=== PATIENT | male | born 1975 | race Hispanic/Latino ===

== ENCOUNTER → 2021-10-29 | Outpatient (CLI) | payer MEDICARE | END | disposition home or self-care (01) | LOC: RAH 08:35 | PROVIDERS: ATTEND Family Medicine | DX: K76.0 Fatty (change of) liver, not elsewhere classified (principal); R18.8 Other ascites | CPT/HCPCS: 76700 ==

== ENCOUNTER 2024-01-13 08:01 | Inpatient (IN) | payer MEDICARE, OTHER ==
[~2024-01-13] VITALS: Ht 170.2 cm; Wt 123.8 kg
[2024-01-13] VITALS (23 sets, daily range): BP systolic 92–111; BP diastolic 39–76; PULSE 76–95; RESP 18–27; O2SAT 100
[2024-01-13 08:27] LABS: BASOPHILS # (AUTO) 0.13 K/uL (0.00-0.20); BASOPHILS % (AUTO) 1.2 % (0.0-5.0); EOSINOPHILS # (AUTO) 0.08 K/uL (0.00-0.70); EOSINOPHILS % (AUTO) 0.8 % (0.0-8.0); HEMATOCRIT 34.7 % (42-54); IMMATURE GRANULOCYTE ABSOLUTE 0.04 K/uL (0-1); LYMPHOCYTES # (AUTO) 2.6 K/uL (1.0-4.8); LYMPHOCYTES % (AUTO) 25.2 % (21.0-51.0); MEAN CORPUSCULAR HEMOGLOBIN 37.1 pg (27.0-33.0); MEAN CORPUSCULAR VOLUME 97.5 fL (79-99); MONOCYTES # (AUTO) 0.8 K/uL (0.1-1.0); MONOCYTES % (AUTO) 7.2 % (3.0-13.0); NEUTROPHILS # (AUTO) 6.8 K/uL (1.8-7.7); NEUTROPHILS % (AUTO) 65.2 % (40.0-77.0); PLATELET COUNT (AUTO) 227 K/uL (130-400); RED BLOOD CELL COUNT(AUTO) 3.56 MIL/uL (4.50-6.20); RED CELL DISTRIBUTION WIDTH 15.3 % (11.0-15.5); WHITE BLOOD COUNT (AUTO) 10.4 K/uL (4.8-10.8)
[2024-01-13] MEDS ORDERED: OCTREOTIDE ACETATE 100 MCG/ML AMP IVP ONE (08:30)
[2024-01-13] MEDS ORDERED: PANTOPRAZOLE 80 MG in 0.9%NACL 100ML IV SCH (08:30)
[2024-01-13] MEDS ORDERED: CEFTRIAXONE 1G VIAL 1 GM in 0.9%NACL 50ML 50 ML IV ONE (08:30)
[2024-01-13] MEDS ORDERED: ONDANSETRON 4MG INJ IVP ONE (08:30)
[2024-01-13] MEDS ORDERED: PANTOPRAZOLE 40 MG/VIAL IVP ONE (08:30)
[2024-01-13] MEDS ORDERED: OCTREOTIDE ACETATE 1,250 MCG in DEXTROSE 5%-WATER 250 ML IV SCH (08:30)
[2024-01-13] MEDS: 0.9%NACL 1000ML 1,000 ML IV ONE (08:33)
[2024-01-13 08:45] LABS: ALANINE AMINOTRANSFERASE 18 U/L (12-78); ALBUMIN 2.7 g/dL (3.5-5.0); ALCOHOL, BLOOD < 3 mg/dL (0-10); AMMONIA 33 umol/L (11-32); ASPARTATE AMINOTRANSFERASE 28 U/L (10-37); BILIRUBIN,TOTAL 2.1 mg/dL (0.2-1.0); CARBON DIOXIDE 28 mmol/L (21-32); CREATINE KINASE, TOTAL 46 U/L (21-232); CREATININE 3.1 mg/dL (0.5-1.3); GLOMERULAR FILTR. RATE CALC 24 mL/min (>90); GLUCOSE,RANDOM 113 mg/dL (70-105); SODIUM SERUM 129 mmol/L (136-145); TOTAL PROTEIN, SERUM 7.6 g/dL (6.0-8.3); UREA NITROGEN, BLOOD 34 mg/dL (7-18)
[2024-01-13 08:47] LABS: CHLORIDE 87 mmol/L (101-111); POTASSIUM 2.7 mmol/L (3.5-5.1)
[2024-01-13 08:56] LABS: INR 0.97 (0.85-1.15); PROTHROMBIN TIME 11.5 SEC (9.6-11.6)
[2024-01-13 08:57] LABS: PARTIAL THROMBOPLASTIN TIME 31.2 SEC (26.3-35.5)
[2024-01-13] MEDS ORDERED: CEFTRIAXONE 1G VIAL IVPB ONE (09:00)
[2024-01-13 09:10] LABS: B-TYPE NATRIURETIC PEPTIDE 42 pg/mL (0-100)
[2024-01-13] MEDS: THIAMINE HCL 100 MG/ML 2ML VIAL IM ONE (09:17)
[2024-01-13] MEDS: POTASSIUM BICARB/CIT AC 25 MEQ TABLET.EFF PO ONE ×2 (09:17→11:05)
[2024-01-13] MEDS: MAGNESIUM 2GM PREMIX 50ML 50 ML IV ONE ×2 (09:17→09:18)
[2024-01-13] MEDS: THIAMINE HCL 100 MG/ML 2ML VIAL ONE (09:18)
[2024-01-13 10:16] LABS: ABG OXYGEN SATURATION 37.9 % (95.0-99.0); BASE EXCESS,VENOUS BLOOD GAS -4.9 (-2.0-3.0); DEVICE COMMENT VENOUS; HCO3,VENOUS BLOOD GAS 17.1 (21.0-28.0); PCO2,VENOUS BLOOD GAS 25 (32-45); PH,VENOUS BLOOD GAS 7.451 (7.350-7.450); PO2,VENOUS BLOOD GAS 20.6 mmHg (35.0-45.0)
[2024-01-13] MEDS ORDERED: METO100T14 PO (10:41)
[2024-01-13] MEDS ORDERED: LACT1CAP80 PO (10:41)
[2024-01-13] MEDS ORDERED: FURO20TA4 PO (10:41)
[2024-01-13] MEDS ORDERED: SPIR50TA5 PO (10:41)
[2024-01-13] MEDS ORDERED: OMEP40CA21 PO (10:41)
[2024-01-13] MEDS ORDERED: DIPH25TA20 PO (10:41)
[2024-01-13] MEDS ORDERED: IBUP1TAB71 PO (10:41)
[2024-01-13] MEDS ORDERED: POTA-200 PO (10:41)
[2024-01-13] MEDS ORDERED: CETI10TA87 PO (10:41)
[2024-01-13] MEDS ORDERED: CHLORDIAZEPOXIDE HCL 25 MG CAP PO PRN (11:30)
[2024-01-13] MEDS ORDERED: LORAZEPAM 2 MG/ML 1 ML VIAL IVP PRN (11:30)
[2024-01-13] MEDS ORDERED: PHARMACY COMMUNICATION MISC PRN (11:30)
[2024-01-13] MEDS ORDERED: ACETAMINOPHEN 325 MG TAB PO PRN (11:30)
[2024-01-13] MEDS ORDERED: ONDANSETRON 4MG INJ IVP PRN (11:30)
[2024-01-13 11:53] LABS: HEMOGLOBIN A1C 4.9 % (4.0-6.0)
[2024-01-13 11:54] LABS: THYROID STIMULATING HORMONE 7.8 uIU/mL (0.36-3.74)
[2024-01-13] MEDS: PANTOPRAZOLE 40 MG/VIAL IVP SCH (12:05)
[2024-01-13] MEDS: CEFTRIAXONE 1G VIAL IVPB SCH (12:06)
[2024-01-13] MEDS: LACTULOSE 20 GM/30 ML UDCUP PO SCH (12:06)
[2024-01-13 12:59] LABS: SARS-CoV-2, RNA, NAAT NEGATIVE SARS CoV-2 (NEGATIVE)
[2024-01-13 13:08] LABS: INFLUENZA TYPE A Negative For Type A (NEGATIVE); INFLUENZA TYPE B Negative For Type B (NEGATIVE)
[2024-01-13 13:12] LABS: POTASSIUM 3.1 mmol/L (3.5-5.1)
[2024-01-13] MEDS: THIAMINE HCL IV SCH (13:26)
[2024-01-13] MEDS: FOLIC ACID IV SCH (13:26)
[2024-01-13] MEDS: [UNRECOGNIZED DRUG - OTHER] IV SCH (13:26)
[2024-01-13] MEDS: M V I IV SCH (13:26)
[2024-01-13] MEDS: ALBUMIN (HUMAN) 25% 100 ML IV SCH (14:00)
[2024-01-13] MEDS: OCTREOTIDE ACETATE 100 MCG/ML AMP IV ONE (14:00)
[2024-01-13] MEDS: MIDODRINE HCL 5 MG TABLET PO SCH (14:53)
[2024-01-13] MEDS: THIAMINE HCL 100 MG/ML 2ML VIAL IVP SCH (14:53)
[2024-01-13] MEDS: POTASSIUM CHLORIDE 10% ELIXIR 20 MEQ/15 ML UDCUP ONE (17:38)
[2024-01-13] MEDS ORDERED: CALCIUM GLUC 1GM 1 GM in 0.9%NACL 100ML 100 ML IV SCH (23:30)
[2024-01-13] MEDS: OCTREOTIDE ACETATE 100 MCG/ML AMP IV SCH (23:41)
[2024-01-14] VITALS (34 sets, daily range): BP systolic 95–112; BP diastolic 57–79; PULSE 74–105; RESP 12–30; O2SAT 97–99
[2024-01-14 04:01] LABS: BASOPHILS # (AUTO) 0.14 K/uL (0.00-0.20); BASOPHILS % (AUTO) 1.1 % (0.0-5.0); EOSINOPHILS # (AUTO) 0.07 K/uL (0.00-0.70); EOSINOPHILS % (AUTO) 0.5 % (0.0-8.0); IMMATURE GRANULOCYTE ABSOLUTE 0.05 K/uL (0-1); LYMPHOCYTES # (AUTO) 1.5 K/uL (1.0-4.8); LYMPHOCYTES % (AUTO) 11.6 % (21.0-51.0); MEAN CORPUSCULAR HEMOGLOBIN 36.6 pg (27.0-33.0); MEAN CORPUSCULAR HGB CONC 36.1 g/dL (32.0-36.0); MEAN CORPUSCULAR VOLUME 101.5 fL (79-99); MONOCYTES # (AUTO) 1.2 K/uL (0.1-1.0); MONOCYTES % (AUTO) 9.4 % (3.0-13.0); NEUTROPHILS # (AUTO) 10.1 K/uL (1.8-7.7); PLATELET COUNT (AUTO) 198 K/uL (130-400); RED BLOOD CELL COUNT(AUTO) 3.25 MIL/uL (4.50-6.20); RED CELL DISTRIBUTION WIDTH 15.9 % (11.0-15.5); WHITE BLOOD COUNT (AUTO) 13.2 K/uL (4.8-10.8)
[2024-01-14 04:23] LABS: ALBUMIN 3.2 g/dL (3.5-5.0); BILIRUBIN,TOTAL 3.4 mg/dL (0.2-1.0); MAGNESIUM 1.9 mg/dL (1.80-2.40); TOTAL PROTEIN, SERUM 7.8 g/dL (6.0-8.3)
[2024-01-14 04:26] LABS: POTASSIUM 2.9 mmol/L (3.5-5.1)
[2024-01-14] MEDS: KCL 20 MEQ ERTAB PO ONE (07:20)
[2024-01-14] MEDS: CETIRIZINE HCL 5 MG TABLET PO SCH (07:32)
[2024-01-14] MEDS: LACTOBACILLUS RHAMNOSUS GG 1 EACH CAP.SPRINK PO SCH (07:32)
[2024-01-14] MEDS: LACTOBACILLUS RHAMNOSUS GG 1 EACH CAP.SPRINK ONE (07:35)
[2024-01-14] MEDS: CETIRIZINE HCL 5 MG TABLET PO ONE (07:35)
[2024-01-14] MEDS: CEFTRIAXONE 1G VIAL IVPB SCH (12:18)
[2024-01-14] MEDS ORDERED: RENAL DOSE IV PRN (17:30)
[2024-01-14] MEDS: TAMSULOSIN HCL 0.4 MG CAP.ER.24H PO SCH (21:15)
[2024-01-15] VITALS (8 sets, daily range): BP systolic 81–149; BP diastolic 50–70; PULSE 81–110; RESP 16–20; O2SAT 97
[2024-01-15 05:51] LABS: BASOPHILS # (AUTO) 0.09 K/uL (0.00-0.20); BASOPHILS % (AUTO) 0.6 % (0.0-5.0); EOSINOPHILS # (AUTO) 0.09 K/uL (0.00-0.70); EOSINOPHILS % (AUTO) 0.6 % (0.0-8.0); HEMATOCRIT 26.6 % (42-54); IMMATURE GRANULOCYTE ABSOLUTE 0.12 K/uL (0-1); LYMPHOCYTES # (AUTO) 1.4 K/uL (1.0-4.8); LYMPHOCYTES % (AUTO) 9.2 % (21.0-51.0); MEAN CORPUSCULAR HEMOGLOBIN 36.6 pg (27.0-33.0); MEAN CORPUSCULAR HGB CONC 36.1 g/dL (32.0-36.0); MEAN CORPUSCULAR VOLUME 101.5 fL (79-99); MONOCYTES # (AUTO) 1.4 K/uL (0.1-1.0); MONOCYTES % (AUTO) 9.3 % (3.0-13.0); NEUTROPHILS # (AUTO) 12.2 K/uL (1.8-7.7); NEUTROPHILS % (AUTO) 79.5 % (40.0-77.0); PLATELET COUNT (AUTO) 112 K/uL (130-400); RED BLOOD CELL COUNT(AUTO) 2.62 MIL/uL (4.50-6.20); RED CELL DISTRIBUTION WIDTH 15.6 % (11.0-15.5); WHITE BLOOD COUNT (AUTO) 15.3 K/uL (4.8-10.8)
[2024-01-15 06:31] LABS: ALBUMIN 3.1 g/dL (3.5-5.0); BILIRUBIN,TOTAL 2.4 mg/dL (0.2-1.0); CREATININE 3.1 mg/dL (0.5-1.3); MAGNESIUM 1.6 mg/dL (1.80-2.40); POTASSIUM 3.7 mmol/L (3.5-5.1); TOTAL PROTEIN, SERUM 6.9 g/dL (6.0-8.3)
[2024-01-15] MEDS: CALCITRIOL 0.25 MCG CAP PO SCH (09:29)
[2024-01-15] MEDS: KCL 20 MEQ ERTAB PO PRN (14:53)
[2024-01-15] MEDS ORDERED: POTASSIUM CHLORIDE 20MEQ/100ML 100 ML IV PRN (15:00)
[2024-01-16] VITALS (8 sets, daily range): BP systolic 90–114; BP diastolic 52–72; PULSE 106–129; RESP 16–20; O2SAT 98–99
[2024-01-16 04:00] LABS: APPEARANCE,URINE CLEAR (CLEAR); BILIRUBIN,URINE NEGATIVE (NEGATIVE); COLOR,URINE YELLOW (YELLOW); GLUCOSE, URINE (UA) NEGATIVE (NEGATIVE); KETONES,URINE NEGATIVE (NEGATIVE); LEUKOCYTE ESTERASE ,URINE NEGATIVE Leu/uL (NEGATIVE); NITRATE,URINE NEGATIVE (NEGATIVE); OCCULT BLOOD,URINE MODERATE (NEGATIVE); PROTEIN,URINE 10 mg/dL (NEGATIVE); UROBILINOGEN,URINE 0.2 mg/dL (0.2-1.0)
[2024-01-16 04:03] LABS: CREATININE,URINE RANDOM 168.95 mg/dL (30-135); SODIUM,URINE RANDOM < 13 mmol/l (40-220)
[2024-01-16 04:04] LABS: ADD UA MICROSCOPIC YES
[2024-01-16 04:05] LABS: BACTERIA,URINE FEW /HPF (None Seen); MUCUS,URINE RARE LPF (None Seen); SQUAMOUS EPITHELIAL CELL,UR FEW /HPF (0-2)
[2024-01-16 05:12] LABS: BASOPHILS # (AUTO) 0.11 K/uL (0.00-0.20); BASOPHILS % (AUTO) 0.8 % (0.0-5.0); EOSINOPHILS # (AUTO) 0.17 K/uL (0.00-0.70); EOSINOPHILS % (AUTO) 1.2 % (0.0-8.0); HEMATOCRIT 28.2 % (42-54); LYMPHOCYTES # (AUTO) 1.3 K/uL (1.0-4.8); LYMPHOCYTES % (AUTO) 8.9 % (21.0-51.0); MEAN CORPUSCULAR HGB CONC 35.8 g/dL (32.0-36.0); MEAN CORPUSCULAR VOLUME 103.3 fL (79-99); MONOCYTES % (AUTO) 7.1 % (3.0-13.0); NEUTROPHILS # (AUTO) 11.7 K/uL (1.8-7.7); NEUTROPHILS % (AUTO) 81.3 % (40.0-77.0); PLATELET COUNT (AUTO) 131 K/uL (130-400); RED BLOOD CELL COUNT(AUTO) 2.73 MIL/uL (4.50-6.20); RED CELL DISTRIBUTION WIDTH 15.7 % (11.0-15.5); WHITE BLOOD COUNT (AUTO) 14.4 K/uL (4.8-10.8)
[2024-01-16 05:35] LABS: CREATININE 3.2 mg/dL (0.5-1.3); PHOSPHORUS 1.7 mg/dL (2.5-4.9)
[2024-01-16] MEDS: MULTIVITAMIN TABLET PO SCH (11:58)
[2024-01-16] MEDS: MAGNESIUM 2GM PREMIX 50ML 50 ML IV SCH (14:59)
[2024-01-16] MEDS: 0.9%NACL 1000ML 1,000 ML IV SCH (15:00)
[2024-01-16] MEDS: POTASSIUM CHLORIDE 10% ELIXIR 20 MEQ/15 ML UDCUP PO PRN (21:19)
[2024-01-17] MEDS: METOPROLOL SUCCINATE 25 MG TAB.SR.24H PO ONE (00:20)
[2024-01-17 04:00] VITALS: BP 103/68; PULSE 106; RESP 18
[2024-01-17 05:10] LABS: BASOPHILS # (AUTO) 0.11 K/uL (0.00-0.20); BASOPHILS % (AUTO) 1.1 % (0.0-5.0); EOSINOPHILS # (AUTO) 0.22 K/uL (0.00-0.70); EOSINOPHILS % (AUTO) 2.1 % (0.0-8.0); HEMATOCRIT 26.3 % (42-54); IMMATURE GRANULOCYTE ABSOLUTE 0.06 K/uL (0-1); LYMPHOCYTES # (AUTO) 1.3 K/uL (1.0-4.8); LYMPHOCYTES % (AUTO) 12.8 % (21.0-51.0); MEAN CORPUSCULAR HEMOGLOBIN 36.7 pg (27.0-33.0); MEAN CORPUSCULAR HGB CONC 36.1 g/dL (32.0-36.0); MEAN CORPUSCULAR VOLUME 101.5 fL (79-99); MONOCYTES # (AUTO) 0.8 K/uL (0.1-1.0); MONOCYTES % (AUTO) 8.1 % (3.0-13.0); NEUTROPHILS # (AUTO) 7.9 K/uL (1.8-7.7); NEUTROPHILS % (AUTO) 75.3 % (40.0-77.0); PLATELET COUNT (AUTO) 159 K/uL (130-400); RED BLOOD CELL COUNT(AUTO) 2.59 MIL/uL (4.50-6.20); RED CELL DISTRIBUTION WIDTH 16.3 % (11.0-15.5); WHITE BLOOD COUNT (AUTO) 10.4 K/uL (4.8-10.8)
[2024-01-17 05:39] LABS: BILIRUBIN,TOTAL 1.2 mg/dL (0.2-1.0); CREATININE 2.8 mg/dL (0.5-1.3); POTASSIUM 3.3 mmol/L (3.5-5.1)
[2024-01-17 08:00] VITALS: BP 134/98; PULSE 107; RESP 20; O2SAT 98
[2024-01-17] MEDS: CEFTRIAXONE 2GM VIAL IVPB SCH (11:30)
[2024-01-17] MEDS: HEPARIN 5,000 UNIT VIAL SQ SCH (11:53)
[2024-01-17 12:00] VITALS: BP 123/71; PULSE 107; RESP 20
[2024-01-17 16:00] VITALS: BP 107/73; PULSE 91; RESP 20
[2024-01-17 20:00] VITALS: BP 111/69; PULSE 94; RESP 18
[2024-01-17] MEDS: OCTREOTIDE ACETATE 100 MCG/ML AMP ONE (22:28)
[2024-01-17 23:36] VITALS: BP 108/70; PULSE 94; RESP 18
[2024-01-18 03:38] VITALS: BP_SYST 110; BP_SYST 124; BP_DIAS 71; BP_DIAS 74; PULSE 100; PULSE 61; RESP 16; RESP 20
[2024-01-18 05:32] LABS: HEMATOCRIT 28.1 % (42-54); MEAN CORPUSCULAR HEMOGLOBIN 37.5 pg (27.0-33.0); MEAN CORPUSCULAR HGB CONC 35.6 g/dL (32.0-36.0); MEAN CORPUSCULAR VOLUME 105.2 fL (79-99); RED BLOOD CELL COUNT(AUTO) 2.67 MIL/uL (4.50-6.20); RED CELL DISTRIBUTION WIDTH 16.8 % (11.0-15.5); WHITE BLOOD COUNT (AUTO) 9.5 K/uL (4.8-10.8)
[2024-01-18 05:44] LABS: CREATININE 2.6 mg/dL (0.5-1.3); POTASSIUM 3.4 mmol/L (3.5-5.1)
[2024-01-18 07:54] VITALS: BP 110/71; PULSE 105; RESP 20
[2024-01-18 08:00] VITALS: O2SAT 98
[2024-01-18 11:46] VITALS: BP 101/57; PULSE 103; RESP 20
[2024-01-18] MEDS ORDERED: ALBUMIN (HUMAN) 25% 100 ML IV PRN (13:30)
[2024-01-18 15:10] VITALS: BP 102/69; PULSE 80; RESP 20
[2024-01-18 16:36] LABS: HEPATITIS A IGM ANTIBODY Non-Reactive (Nonreactive); HEPATITIS B CORE IGM ANTIBODY Non-Reactive (Negative); HEPATITIS B SURFACE ANTIGEN Non-Reactive (Nonreactive); HEPATITIS C ANTIBODY Non-Reactive (Nonreactive)
[2024-01-18 20:00] VITALS: BP 129/73; PULSE 118; RESP 16; O2SAT 97
[2024-01-19] VITALS (8 sets, daily range): BP systolic 100–116; BP diastolic 66–79; PULSE 97–107; RESP 16–20; O2SAT 98
[2024-01-19 04:36] LABS: HEMATOCRIT 26.3 % (42-54); MEAN CORPUSCULAR HEMOGLOBIN 36.5 pg (27.0-33.0); MEAN CORPUSCULAR HGB CONC 35.4 g/dL (32.0-36.0); MEAN CORPUSCULAR VOLUME 103.1 fL (79-99); RED BLOOD CELL COUNT(AUTO) 2.55 MIL/uL (4.50-6.20); RED CELL DISTRIBUTION WIDTH 17.2 % (11.0-15.5); WHITE BLOOD COUNT (AUTO) 10.4 K/uL (4.8-10.8)
[2024-01-19 04:48] LABS: CREATININE 2.2 mg/dL (0.5-1.3); POTASSIUM 4.2 mmol/L (3.5-5.1)
[2024-01-20] VITALS (8 sets, daily range): BP systolic 96–136; BP diastolic 58–83; PULSE 97–118; RESP 17–20; O2SAT 97
[2024-01-21] VITALS (8 sets, daily range): BP systolic 103–134; BP diastolic 66–94; PULSE 58–114; RESP 16–20; O2SAT 100
[2024-01-21 05:00] LABS: HEMATOCRIT 26.7 % (42-54); MEAN CORPUSCULAR HEMOGLOBIN 36.7 pg (27.0-33.0); MEAN CORPUSCULAR HGB CONC 35.2 g/dL (32.0-36.0); MEAN CORPUSCULAR VOLUME 104.3 fL (79-99); RED BLOOD CELL COUNT(AUTO) 2.56 MIL/uL (4.50-6.20); RED CELL DISTRIBUTION WIDTH 17.8 % (11.0-15.5); WHITE BLOOD COUNT (AUTO) 6.5 K/uL (4.8-10.8)
[2024-01-21 05:23] LABS: ALBUMIN 2.7 g/dL (3.5-5.0); CREATININE 1.9 mg/dL (0.5-1.3); POTASSIUM 3.7 mmol/L (3.5-5.1); TOTAL PROTEIN, SERUM 7.2 g/dL (6.0-8.3)
[2024-01-21] MEDS: METOPROLOL TARTRATE 1 MG/ML 5ML VIAL IV PRN (14:18)
[2024-01-22] VITALS (7 sets, daily range): BP systolic 90–127; BP diastolic 58–81; PULSE 87–117; RESP 18–20; O2SAT 100
[2024-01-22 04:37] LABS: HEMATOCRIT 30.9 % (42-54); MEAN CORPUSCULAR HEMOGLOBIN 36.6 pg (27.0-33.0); MEAN CORPUSCULAR HGB CONC 34.3 g/dL (32.0-36.0); MEAN CORPUSCULAR VOLUME 106.6 fL (79-99); PLATELET COUNT (AUTO) 210 K/uL (130-400); RED CELL DISTRIBUTION WIDTH 17.5 % (11.0-15.5); WHITE BLOOD COUNT (AUTO) 6.8 K/uL (4.8-10.8)
[2024-01-22 04:45] LABS: CREATININE 2.1 mg/dL (0.5-1.3); POTASSIUM 3.8 mmol/L (3.5-5.1)
[2024-01-23] VITALS: BP 114/78; PULSE 80; RESP 16
[2024-01-23 03:57] LABS: HEMATOCRIT 26.7 % (42-54); MEAN CORPUSCULAR HEMOGLOBIN 37.3 pg (27.0-33.0); MEAN CORPUSCULAR HGB CONC 35.6 g/dL (32.0-36.0); MEAN CORPUSCULAR VOLUME 104.7 fL (79-99); RED BLOOD CELL COUNT(AUTO) 2.55 MIL/uL (4.50-6.20); RED CELL DISTRIBUTION WIDTH 17.4 % (11.0-15.5); WHITE BLOOD COUNT (AUTO) 6.4 K/uL (4.8-10.8)
[2024-01-23 04:00] VITALS: BP 120/73; PULSE 121; RESP 16
[2024-01-23 04:18] LABS: MAGNESIUM 1.6 mg/dL (1.80-2.40); POTASSIUM 3.8 mmol/L (3.5-5.1)
[2024-01-23] MEDS: MAGNESIUM 2GM PREMIX 50ML 50 ML IV PRN (04:39)
[2024-01-23 08:00] VITALS: BP 123/82; PULSE 104; RESP 18
[2024-01-23 12:00] VITALS: BP 109/64; PULSE 103; RESP 16
[2024-01-23] MEDS ORDERED: MIDO10TA PO (12:10)
[2024-01-23] MEDS ORDERED: METO25TA6 PO (12:10)
[2024-01-23 16:00] VITALS: BP 104/77; PULSE 107; RESP 18
[2024-01-23 20:00] VITALS: BP 108/62; PULSE 104; RESP 16
== END 2024-01-23 20:45 | disposition home or self-care (01) | DRG 871 ==
LOC: EDH 08:01 → EDHIP 08:02 → 2BH 15:20 → 3DH 01-14 18:43
PROVIDERS: ADMIT Hospitalist; ATTEND Hospitalist
DX: A41.9 Sepsis, unspecified organism (principal); K76.7 Hepatorenal syndrome; R65.21 Severe sepsis with septic shock; E44.1 Mild protein-calorie malnutrition; E87.1 Hypo-osmolality and hyponatremia; E87.20 Acidosis, unspecified; N17.9 Acute kidney failure, unspecified; Z68.41 Body mass index [BMI] 40.0-44.9, adult; N30.00 Acute cystitis without hematuria; Z20.822 Contact with and (suspected) exposure to COVID-19; D69.6 Thrombocytopenia, unspecified; E83.51 Hypocalcemia; E11.22 Type 2 diabetes mellitus with diabetic chronic kidney disease; E86.0 Dehydration; E03.9 Hypothyroidism, unspecified; E66.01 Morbid (severe) obesity due to excess calories; E83.42 Hypomagnesemia; E86.1 Hypovolemia; E87.6 Hypokalemia; F32.A Depression, unspecified; K70.30 Alcoholic cirrhosis of liver without ascites; K80.20 Calculus of gallbladder without cholecystitis without obstruction; N18.9 Chronic kidney disease, unspecified; D53.9 Nutritional anemia, unspecified; E11.51 Type 2 diabetes mellitus with diabetic peripheral angiopathy without gangrene; E87.70 Fluid overload, unspecified; F10.20 Alcohol dependence, uncomplicated; G47.33 Obstructive sleep apnea (adult) (pediatric); I48.91 Unspecified atrial fibrillation; J44.9 Chronic obstructive pulmonary disease, unspecified; Z56.0 Unemployment, unspecified; Z74.01 Bed confinement status; Z79.899 Other long term (current) drug therapy; Z87.891 Personal history of nicotine dependence
CPT/HCPCS: 36415; 36600; 71045; 73620; 74176; 76770; 80048; 80053; 80074; 81001; 82140; 82270; 82330; 82533; 82550; 82570; 82607; 82746; 82803; 82948; 83036; 83605; 83735; 83880; 83970; 84100; 84145; 84300; 84443; 84484; 85025; 85027; 85610; 85651; 85730; 86140; 86850; 86900; 86901; 87040; 87635; 87804; 93005; 93306; 93925; 93970; 96365; 96366; 96372; 96375; 99291; C9113; G0378; J0696; J1644; J2354; J2405; J3411; J3475; J3490; J7030; J7060; P9046; 73560